=== PATIENT | female | born 1960 | race Caucasian/White ===

== ENCOUNTER 2017-04-21 15:40 | Inpatient (IN) ==
[2017-04-21 17:16] LABS: MANUAL DIFF NEEDED? NO
[2017-04-21 17:19] LABS: BASO% 0.7 % (0.0-0.8); EOS# 0.15 X1000 (0.0-0.7); EOS% 1.8 % (0.0-10.0); HEMATOCRIT 44.7 % (37.0-47.0); HEMOGLOBIN 14.7 g/dL (12.0-16.0); IMM GRAN# 0.01 X1000 (0.0-0.04); IMM GRAN% 0.1 % (0.0-0.5); LYMPH# 2.24 X1000 (1.2-3.4); LYMPH% 27.2 % (20.5-51.1); MCH 29.4 PG (27-31); MCHC 32.9 g/dL (33-37); MCV 89.4 FL (81-99); MONO# 0.52 X1000 (0.11-0.59); MONO% 6.3 % (1.7-9.3); MPV 9.1 FL (7.4-10.4); NEUT% 63.9 % (42.2-75.2); PLT 345 X1000 (130-400)
[2017-04-21 17:33] LABS: AGAP 15; ALBUMIN 3.6 g/dL (3.5-5.0); ALKALINE PHOSPHATASE 185 U/L (32-104); BUN 9 mg/dL (8-22); CALCIUM 9.7 mg/dL (8.8-10.2); CHLORIDE 96 mmol/L (98-107); COSMO 273; GOT 20 U/L (10-30); GPT 21 U/L (10-36); POTASSIUM 4.2 mmol/L (3.5-5.1); SODIUM 131 mmol/L (136-145); TCO2 20 mmol/L (25-35); TOTAL PROTEIN 8.5 g/dL (6.3-8.3)
[2017-04-21] MEDS: PERCOCET-10 PO PRN (17:36)
[2017-04-21] MEDS ORDERED: TYLENOL PO PRN (19:49)
[2017-04-21] MEDS ORDERED: ZOFRAN IV PRN (19:49)
[2017-04-21] MEDS: CUBICIN (FOR INPATIENT USE) 600 MG in NS 100 ML IV SCH (23:11)
[2017-04-21] MEDS: NS 1,000 ML IV SCH (23:11)
[2017-04-21] MEDS: PATIENT'S OWN MED (CONTROLLED) PO SCH (23:26)
[2017-04-21] MEDS: HUMALOG SUBQ SCH (23:27)
[2017-04-22] MEDS: PERCOCET-10 PO PRN ×2 (00:55→14:21)
[2017-04-22 02:09] LABS: URINE CULTURE PL NEEDED? NO
[2017-04-22 02:19] LABS: BILIRUBIN URINE NEGATIVE (NEGATIVE); BLOOD URINE NEGATIVE (NEGATIVE); CLARITY CLEAR (CLEAR); COLOR YELLOW; LEUKOCYTES URINE NEGATIVE (NEGATIVE); NITRITE URINE NEGATIVE (NEGATIVE); PROTEIN URINE TRACE mg/dL (NEGATIVE); UROBILINOGEN URINE 1+(1 mg/dL)
[2017-04-22 02:23] LABS: URINE EPITHELIAL CELLS <10 /HPF (<10); URINE RBC <10 /HPF (<10); URINE SOURCE CLEAN CATCH; URINE WBC <10 /HPF (<10)
[2017-04-22 06:08] LABS: HEMATOCRIT 40.7 % (37.0-47.0); HEMOGLOBIN 13.2 g/dL (12.0-16.0); MCH 29.4 PG (27-31); MCHC 32.4 g/dL (33-37); MCV 90.6 FL (81-99); MPV 9.3 FL (7.4-10.4); RBC 4.49 XMIL (4.2-5.4)
[2017-04-22 06:25] LABS: AGAP 15; ALKALINE PHOSPHATASE 154 U/L (32-104); BUN 11 mg/dL (8-22); CALCIUM 8.9 mg/dL (8.8-10.2); CHLORIDE 100 mmol/L (98-107); COSMO 277; GOT 21 U/L (10-30); GPT 20 U/L (10-36); POTASSIUM 4.3 mmol/L (3.5-5.1); SODIUM 135 mmol/L (136-145); TCO2 20 mmol/L (25-35); TOTAL PROTEIN 7.1 g/dL (6.3-8.3)
[2017-04-22] MEDS: PRINIVIL PO SCH (08:45)
[2017-04-22] MEDS: NON-FORMULARY BULK MED SUBQ SCH (08:45)
[2017-04-22] MEDS: HYDROCHLOROTHIAZIDE PO SCH (08:45)
[2017-04-22] MEDS: PATIENT'S OWN MED (CONTROLLED) PO SCH ×2 (08:46→20:50)
[2017-04-22] MEDS: SAVAYSA PO SCH (08:47)
[2017-04-22] MEDS: HUMALOG SUBQ SCH (08:48)
--- NOTE | 2017-04-22 10:35 | Extremity Venous Study ---
EXAM: Venous U/S Bilateral Legs HISTORY: swelling . History of DVT. History of factor V deficiency. TECHNIQUE: Harvey scale, color Doppler, and duplex evaluation was performed. COMPARISON: 12/19/2015 FINDINGS: Right lower extremity: There is unchanged chronic appearing DVT within the popliteal and gastrocnemius veins similar to prior study. No evidence for DVT involving the femoral vein. There is evidence of chronic SVT within the right greater saphenous vein. Left lower extremity: There is new, chronic appearing DVT within the left mid and distal superficial femoral vein and popliteal vein. They are noncompressible but demonstrate some flow consistent with recanalization. There is persistent chronic appearing thrombus within the posterior tibial and peroneal veins similar to prior. There is persistent superficial thrombosis of the greater and lesser saphenous veins. IMPRESSION: New chronic appearing DVT within the left mid and distal femoral and popliteal veins. Unchanged chronic appearing DVT within the left posterior tibial and peroneal veins. . Unchanged chronic DVT right popliteal and gastrocnemius veins. Unchanged bilateral superficial venous thrombosis. Electronically signed by Cinthia Dale 04/22/2017 10:32 AM
[2017-04-22] MEDS: HUMALOG DOSE (PARKWAY) SUBQ SCH ×3 (11:17→20:49)
--- NOTE | 2017-04-22 11:24 | PROGRESS NOTE ---
DATE: 04/22/2017 CHIEF COMPLAINT: Patient states she is feeling better. Still having some redness and some swelling in her lower extremities. Denies any worsening of the pain. OBJECTIVE: Vital Signs: Temperature 98.3 degrees, pulse 81, respiratory rate 18, BP 151/83, satting 100% on room air. General: Patient is awake, alert. She is lying in bed. She is currently in no respiratory distress. She is pleasant to talk with. Denies any chest pain, palpitations. Neck: Supple. CV: Regular rate. Chest: Clear. Abdomen: Soft. Extremities: Moves all extremities. Neurologic: No changes. Skin: She has less edema and erythema, as well as less warmth of the left lower extremity. ASSESSMENT: 1. Cellulitis. 2. Diabetes. 3. Chronic pain. PLAN: We will continue IV antibiotics, daptomycin. Will continue blood pressure control. Continue sliding scale insulin. Further orders as needed. She had an ultrasound with current results pending. cc: Bassem Johnson MD
[2017-04-22] MEDS: NS 1,000 ML IV SCH (20:48)
[2017-04-22] MEDS: CUBICIN (FOR INPATIENT USE) 600 MG in NS 100 ML IV SCH (23:10)
[2017-04-23] MEDS: HUMALOG DOSE (PARKWAY) SUBQ SCH ×4 (06:29→21:22)
[2017-04-23] MEDS: PRINIVIL PO SCH (09:17)
[2017-04-23] MEDS: HYDROCHLOROTHIAZIDE PO SCH (09:17)
[2017-04-23] MEDS: SAVAYSA PO SCH (09:18)
[2017-04-23] MEDS: PATIENT'S OWN MED (CONTROLLED) PO SCH ×2 (09:18→21:24)
[2017-04-23] MEDS: NON-FORMULARY BULK MED SUBQ SCH (09:18)
[2017-04-23] MEDS: NS 1,000 ML IV SCH ×2 (09:19→22:31)
--- NOTE | 2017-04-23 11:34 | PROGRESS NOTE ---
DATE: 04/23/2017 SUBJECTIVE: The patient notes that she is overall feeling a little bit better. She is still having lots of pain in her foot and leg that seems to be worse with activity. She got up and walked to the restroom and her pain has increased. OBJECTIVE: Temperature 95 degrees, pulse 89, respiratory rate 18, BP 134/74 and satting 98% on room air.General: Patient is awake, alert, and oriented. She is currently in no real respiratory distress. Speech is regular. Memory is intact. Neck: Supple. CV: Regular rate. Chest: Relatively clear. Abdomen: Soft. Extremities: Moves all extremities. Neurologic: No focal changes. Skin: Warm and dry. No rashes. She still has the same rash on her left lower extremity. This seems to be improving. She has less erythema and less warmth. No current drainage. ASSESSMENT: 1. Cellulitis left lower extremity. 2. Multiple chronic DVT's currently on . We will continue this. 3. Hypertension. 4. Obesity. 5. Chronic pain. 6. Left foot pain. 7. We will check an x-ray and we will follow. cc: Bassem Johnson MD
[2017-04-23] MEDS: PERCOCET-10 PO PRN (12:34)
--- NOTE | 2017-04-23 13:21 | Diag Imaging Result Doc PS360 ---
FOOT COMPLETE LEFT - 04/23/2017 INDICATION: pain TECHNIQUE: Three views COMPARISON: None FINDINGS: Bones are intact and normally aligned. There are degenerative heel spurs. There is mild diffuse pedal edema. There are soft tissue calcifications at the lower leg and ankle suggesting chronic venous insufficiency. No fracture or subluxation. IMPRESSION: No acute disease. Electronically signed by Nabeel Choi 04/23/2017 1:18 PM
[2017-04-23] MEDS: CUBICIN (FOR INPATIENT USE) 600 MG in NS 100 ML IV SCH (22:31)
[2017-04-24] MEDS: HUMALOG DOSE (PARKWAY) SUBQ SCH ×4 (06:36→21:09)
[2017-04-24] MEDS: PERCOCET-10 PO PRN ×3 (08:06→21:07)
[2017-04-24] MEDS: HYDROCHLOROTHIAZIDE PO SCH (08:07)
[2017-04-24] MEDS: PRINIVIL PO SCH (08:07)
[2017-04-24] MEDS: SAVAYSA PO SCH (08:07)
[2017-04-24] MEDS: NON-FORMULARY BULK MED SUBQ SCH (08:07)
[2017-04-24] MEDS: PATIENT'S OWN MED (CONTROLLED) PO SCH ×2 (09:37→21:09)
[2017-04-24] MEDS ORDERED: PRINIVIL PO ONE (10:00)
[2017-04-24] MEDS: NS 1,000 ML IV SCH (14:30)
[2017-04-24] MEDS ORDERED: INSULIN PEN NEEDLES ONE (21:04)
[2017-04-24] MEDS: CUBICIN (FOR INPATIENT USE) 600 MG in NS 100 ML IV SCH (22:51)
[2017-04-25] MEDS: NS 1,000 ML IV SCH ×2 (06:00→16:58)
[2017-04-25] MEDS: PERCOCET-10 PO PRN ×2 (06:06→15:01)
[2017-04-25] MEDS: HUMALOG DOSE (PARKWAY) SUBQ SCH ×4 (06:45→22:20)
--- NOTE | 2017-04-25 08:35 | PROGRESS NOTE ---
DATE: 04/25/2017 SUBJECTIVE: Patient notes that her left leg is still hurting tremendously. It is fine when she is lying in bed but hurts when she is up and moving about. Denies any chest pain, palpitations. States overall she is feeling better. OBJECTIVE: Vital signs: Temperature 98, pulse 81, respiratory rate 18, BP 137/68. General: Patient is awake, alert. She is currently in no respiratory distress. Speech is regular. Memory is intact. Neck: Supple. CV: Regular rate. Chest: Clear. Extremities: Both lower extremities still have marked erythema without much change from yesterday's exam. dry can tender to palpation. Good pulses . ASSESSMENT: 1. Cellulitis. 2. Diabetes. 3. Hypertension. PLAN: Her wound culture is growing gram-positive cocci. Will continue Cubicin today and continue to follow the culture. We will adjust medications as per her culture. cc: Bassem Johnson MD
[2017-04-25] MEDS: HYDROCHLOROTHIAZIDE PO SCH (09:30)
[2017-04-25] MEDS: NON-FORMULARY BULK MED SUBQ SCH (09:31)
[2017-04-25] MEDS: PRINIVIL PO SCH (09:31)
[2017-04-25] MEDS: SAVAYSA PO SCH (09:31)
[2017-04-25] MEDS: PATIENT'S OWN MED (CONTROLLED) PO SCH ×2 (09:31→22:20)
[2017-04-25] MEDS: CUBICIN (FOR INPATIENT USE) 600 MG in NS 100 ML IV SCH (22:19)
[2017-04-26 06:11] LABS: HEMATOCRIT 38.2 % (37.0-47.0); HEMOGLOBIN 12.5 g/dL (12.0-16.0); MCH 29.6 PG (27-31); MCHC 32.7 g/dL (33-37); MCV 90.5 FL (81-99); MPV 8.9 FL (7.4-10.4); RBC 4.22 XMIL (4.2-5.4)
[2017-04-26 06:26] LABS: AGAP 9; BUN 10 mg/dL (8-22); CHLORIDE 101 mmol/L (98-107); COSMO 277; POTASSIUM 3.9 mmol/L (3.5-5.1); SODIUM 135 mmol/L (136-145); TCO2 25 mmol/L (25-35)
[2017-04-26] MEDS: NS 1,000 ML IV SCH ×2 (07:27→21:46)
[2017-04-26] MEDS: CLINDAMYCIN 900 MG in NS 50 ML IV SCH ×3 (08:42→23:23)
[2017-04-26] MEDS: PRINIVIL PO SCH (09:16)
[2017-04-26] MEDS: HYDROCHLOROTHIAZIDE PO SCH (09:16)
--- NOTE | 2017-04-26 09:32 | PROGRESS NOTE ---
DATE: 04/26/2017 SUBJECTIVE: The patient notes that her left foot still hurts when she attempts to ambulate. Other than that, she denies any chills, denies any other rashes. Thinks the rash on the left lower extremity is improving slightly. PHYSICAL EXAMINATION: Temperature 98, pulse 81, respiratory 16, BP 142/71, saturation 99% on room air. General: Patient is awake, alert, currently in no respiratory distress. She is pleasant to talk with. Neck supple. CV: Regular rate. Chest relatively clear. Abdomen is soft. Extremities: Moves all extremities. Neurologic: No focal changes. Extremities: Moves all extremities well. She does have pain in the left ankle area with ambulation. Scan appears to be less erythematous, less warmth in her left lower extremity, although only slightly improved. ASSESSMENT: 1. Left lower extremity cellulitis. We will start her on clindamycin as well as Diflucan as her skin culture is growing Staphylococcus epi, which is highly sensitive to clindamycin and Mel albicans. 2. Diabetes. 3. Obesity. 4. Hypertension. PLAN: Hopefully home in the next 1-2 days. cc: Bassem Johnson MD
[2017-04-26] MEDS: PATIENT'S OWN MED (CONTROLLED) PO SCH ×2 (09:44→21:47)
[2017-04-26] MEDS: DIFLUCAN PO SCH (09:45)
[2017-04-26] MEDS: NON-FORMULARY BULK MED SUBQ SCH (09:51)
[2017-04-26] MEDS: HUMALOG DOSE (PARKWAY) SUBQ SCH ×4 (11:45→21:46)
[2017-04-26] MEDS: PERCOCET-10 PO PRN (14:41)
[2017-04-26] MEDS: SAVAYSA PO SCH (17:46)
[2017-04-27] MEDS: HUMALOG DOSE (PARKWAY) SUBQ SCH ×2 (06:45→10:54)
[2017-04-27 07:33] VITALS: BP 142/72
[2017-04-27] MEDS: CLINDAMYCIN 900 MG in NS 50 ML IV SCH (08:36)
[2017-04-27] MEDS: HYDROCHLOROTHIAZIDE PO SCH (08:36)
[2017-04-27] MEDS: DIFLUCAN PO SCH (08:36)
[2017-04-27] MEDS: PRINIVIL PO SCH (08:36)
[2017-04-27] MEDS: NON-FORMULARY BULK MED SUBQ SCH (08:37)
[2017-04-27] MEDS: PATIENT'S OWN MED (CONTROLLED) PO SCH (08:38)
[2017-04-27] MEDS: NS 1,000 ML IV SCH (08:38)
[2017-04-27] MEDS ORDERED: PERCOCET-10 PO PRN (08:40)
[2017-04-27] MEDS ORDERED: SSD CREAM TOP PRN (08:40)
[2017-04-27] MEDS: SAVAYSA PO SCH (08:40)
[2017-04-27] MEDS ORDERED: CLEOCIN PO SCH (09:00)
[2017-04-27] MEDS ORDERED: LASIX PO SCH (09:00)
[2017-04-27] MEDS ORDERED: NUCYNTA PO SCH (09:00)
[2017-04-27] MEDS ORDERED: INSULIN DEGLUDEC 30 UNIT SQ SCH (21:00)
[2017-04-27] MEDS ORDERED: SAVAYSA PO SCH (21:00)
[2017-04-28] MEDS ORDERED: NEXIUM PO SCH (07:00)
[2017-04-28] MEDS ORDERED: NON-FORMULARY BULK MED SUBQ SCH (21:00)
--- NOTE | 2017-04-30 10:25 | DISCHARGE SUMMARY ---
ADMISSION DATE: 04/21/2017 DISCHARGE DATE: 04/27/2017 DISCHARGE DIAGNOSES: 1. Cellulitis. 2. Left ankle pain, likely osteoarthritis. X-ray was negative. 3. History of deep vein thrombosis. 4. Obesity. 5. Diabetes, good control. CONSULTATIONS: None. PROCEDURES: None. BRIEF HOSPITAL COURSE: Patient is a 56-year-old female who was admitted as on the [facility] treated in the usual fashion. Placed on antibiotics. As her wound culture returned, her antibiotics were narrowed. She thankfully had an uneventful hospital course, although it was prolonged secondary to having to change antibiotics multiple times in an attempt to get her symptoms to resolve. On discharge, patient was awake, alert. She was in no distress. Her rash had continued to improve. Although it was not gone, it was still erythematous. It had began to shrink and therefore she will be discharged home. DISPOSITION: The patient will be discharged home. She will continue antibiotics for the next 7 days. She will follow up outpatient with her primary care. TIME SPENT ON DISCHARGE: 35 minutes was spent in total care. cc: Bassem Johnson MD
--- NOTE | 2017-04-30 12:55 | HISTORY AND PHYSICAL ---
CHIEF COMPLAINT: Pain in the left lower extremity. HISTORY OF PRESENT ILLNESS: The patient is a 56-year-old female, who has a known history of diabetes as well as recurrent infections. She presented to her primary office and it was felt that she needed to be admitted to the hospital. She was then admitted to [place]. SOCIAL HISTORY: Patient lives at home. Does not smoke or drink. Her primary care is [facility]. MEDICATIONS.: Silvadene, Percocet, Humalog 70/30, Lasix, Nexium ALLERGIES: Latex and Plavix. PAST MEDICAL HISTORY: Diabetes, history of DVT, obesity, chronic reflux. FAMILY HISTORY: Noncontributory. REVIEW OF SYSTEMS: Patient notes that she has been feeling well until this rash started on her left lower extremity. It has continued to worsen. Now, she has pain into her mid calf, sometimes up to her knee. Her ankle has been hurting when she walks. If she is off of it, the ankle feels better. Denies any rashes anywhere else. Denies any fevers or chills. Denies chest pain, palpitations. Denies dysuria, frequency, urgency. Denies hesitancy, polyuria, polydipsia. Denies weight loss or weight gain. PHYSICAL EXAMINATION: VITAL SIGNS: Reviewed. She is afebrile. Heart rate 90s, respiratory 20, blood pressure is stable. NECK: Supple. CARDIOVASCULAR: Regular rate. CHEST: Relatively clear. ABDOMEN: Soft. Nondistended. Nontender. EXTREMITIES: Trace edema bilateral lower extremities but moves all extremities well. NEUROLOGIC: No focal changes. SKIN: She is noted to have a deeply erythematous rash from her midfoot to a few centimeters below her left knee, warm to the touch. She has a small ulcerated lesion on the left jaramillo near her ankle that is draining. LABORATORY DATA: Pending. ASSESSMENT: 1. Cellulitis. 2. Left ankle pain. 3. History of deep venous thromboses. 4. Known diabetes. 5. Chronic reflux. 6. Obesity. PLAN: We will admit the patient to the hospital. IV fluids. Antibiotics. Sliding scale insulin. Further orders as needed. cc: Bassem Johnson MD
--- NOTE | 2017-04-30 13:09 | PROGRESS NOTE ---
DATE: 04/24/2017 SUBJECTIVE: Patient notes she is still having lots of pain in her left lower extremity. She is unable to get out of bed. States it hurts too much to walk to the restroom from a bed. Denies any chest pain, palpitations. Denies any fevers or chills. OBJECTIVE: Vital Signs: Reviewed and stable. She is awake, alert, oriented. Neck: Supple. CV: Regular rate. Chest: Relatively clear. Abdomen: Soft. Extremities: Moves all extremities. She is noted to have pain in her left ankle with palpation with erythema from her left ankle to just below her left knee. Still having some drainage. The bandage is clean, dry, and intact. ASSESSMENT: 1. Cellulitis. 2. Diabetes. 3. Obesity. PLAN: We will continue patient in the hospital. Continue IV antibiotics. Continue to follow. Further orders as needed. cc: Bassem Johnson MD
== END 2017-04-27 13:55 | disposition home or self-care (01) ==
LOC: P.DIRADM 15:40 → P.MEDSURG 16:17
PROVIDERS: ADMIT Family Medicine; ATTEND Family Medicine